=== PATIENT | male | born 1950 | race Caucasian/White ===

== ENCOUNTER 2018-01-25 06:03 | Day surgery (SDC) | payer MEDICARE, BC ==
[2008-09-25 10:50] VITALS: BP 153/78
[~2018-01-25] VITALS: Ht 172.8 cm; Wt 97.8 kg
[2018-01-25] VITALS (11 sets, daily range): BP systolic 126–136; BP diastolic 60–109; PULSE 20–70; TEMP 97.8–98.1
[~2018-01-25 06:03] MED LIST: ALTACE 10MG TAB10 MG PO; ALTACE2.5 M1 PO; ALTACE5 MG PO; AMBIEN 5MG TABLE5 MG PO; AMLOPIDINE PO; ASPIR-LOW81 MG PO; ASPIRIN 32325 MG/TAB PO; ASPIRIN 81M81 MG/TA2 PO; ASPIRIN E.C.325 MG PO; BISOPROLOL; CLOPIDOGREL PO; CO ENZYME Q-1050 MG PO; COQ10150 MG PO; HCTZ; IMDUR 30MG30 MG/TAB PO; IMDUR120 MG PO; LIPITOR 80MG80 MG PO; LIPITOR80 MG PO; LOPRESSOR 225 MG/TAB PO; LOPRESSOR50 MG PO; NIASPAN 500MG500 MG PO; NIASPAN500 MG PO; NITROQUICK0.4 MG SL; NITROSTAT0.4 MG/TAB SL; NORVASC 10MG10 MG PO; NORVASC5 MG PO; PERCOCET 325 MG1 TA2 PO; PLAVIX 75MG TAB75 MG PO; SIMVISTATIN; TOPROL XL 25MG25 MG PO; TOPROL XL 50MG50 MG PO
[2018-01-25] MEDS ORDERED: COREG 6.256.25 MG/TA PO (06:55)
[2018-01-25] MEDS ORDERED: ZESTRIL 10MG10 MG PO (06:56)
[2018-01-25 07:11] LABS: HEMATOCRIT 43.3 % (42.0-52.0); HEMOGLOBIN 14.6 g/dl (13.5-18.0); MEAN CELL VOLUME 96 fl (80.0-100.0); MEAN CORPUSCULAR HEMOGLOBIN 32 pg (27.0-31.0); MEAN CORPUSCULAR HGB CONC 34 g/dl (33.0-37.0); MEAN PLATELET VOLUME 9.9 fl (7.4-10.4); PLATELET COUNT 182 K/mm3 (130-400); RED BLOOD COUNT 4.51 M/mm3 (4.20-5.60); REDCELL DISTRIBUTION WIDTH-CV 13.7 % (11.5-14.5)
[2018-01-25 07:18] LABS: INR 1.1 (0.8-3.0)
[2018-01-25 07:26] LABS: CALCIUM 9.2 mg/dL (8.4-10.2); CREATININE, serum 0.67 mg/dL (0.66-1.25); POTASSIUM 5.2 mmol/L (3.4-5.0)
== END 2018-01-25 14:23 | disposition home or self-care (01) ==
LOC: COL.CAR 06:03
PROVIDERS: Internal Medicine Interventional Cardiology
DX: I25.118 Atherosclerotic heart disease of native coronary artery with other forms of angina pectoris (principal); I77.1 Stricture of artery; C85.91 Non-Hodgkin lymphoma, unspecified, lymph nodes of head, face, and neck; Z79.02 Long term (current) use of antithrombotics/antiplatelets; Z79.82 Long term (current) use of aspirin; Z88.0 Allergy status to penicillin; Z88.7 Allergy status to serum and vaccine; Z91.041 Radiographic dye allergy status; Z91.013 Allergy to seafood; Z87.891 Personal history of nicotine dependence
CPT/HCPCS: J1200; J1644; J2250; J3010; J7512; Q9967